=== PATIENT | female | born 1945 | race Caucasian/White ===

== ENCOUNTER 2018-07-20 11:19 | Emergency (ER) | payer OTHER ==
[~2018-07-20] VITALS: Ht 170.2 cm; Wt 86.2 kg
[~2018-07-20 11:19] MED LIST: FEMARA2.5 MG; LIPITOR20 MG; SYNTHROID50 MCG
[2018-07-20] MEDS ORDERED: BYSTOLIC10 MG PO (12:00)
[2018-07-20] MEDS ORDERED: AVALIDE 300-121 EACH PO (12:01)
== END 2018-07-20 14:00 | disposition home or self-care (01) ==
LOC: ER 11:19
DX: H92.01 Otalgia, right ear (principal)